=== PATIENT | female | born 1985 | race Caucasian/White ===

== ENCOUNTER 2025-01-19 10:28 | Emergency (ER) | payer OTHER, SELFPAY ==
--- OUTSIDE RECORDS SUMMARY | 2025-01-19 10:31 | XMS_ITS | Clinical Summary ---
Author Organization [facility] Address [address] [place] [id number] Care Team Providers Care Mechanic Insulator Name Role Phone Wendy Cruz MD Primary Care Provider Allergies No known active allergies Medications levonorgestrel-eth inyl estrad, 0.1mg-20mcg, (ALESSE-28) 0.1-20 mg-mcg tabletIndications: Encounter for counseling regarding contraception Take 1 Tablet by mouth once daily. 90 Tablet 3 Active Hospital, Clinic, or Other Facility Administered Medication Ordered Dose Route Frequency Start Date End Date Status levonorgestrel intrauterine device (MIRENA) 1 DeviceIndications:Encounter for IUD insertion 1 Device IU Q 7 YEARS 01/12/2022 Active Active Problems Problem Noted Date Diagnosed Date ASCUS with positive high risk HPV cervical 03/26 Overview (03/29/2022): 03/2017-ASCUS/HPV+ 04/2017 colp cervicitis 05/2018 NIL/HPV negative 12/2021 NIL/HPV Negative Plan: Pap/HPV due 12/2024 Anxiety 10/18/2014 Gallstone ileus 12/17/2009 Overview (12/18/2021): Gallstone Resolved Problems Problem Noted Date Diagnosed Date Resolved Date Encounter for supervision of normal in third trimester 08/27/2018 12/18/2021 05/07/2018 12/18/2021 Overview (10/15/2018): Estimated Date of Delivery: 11/02/18 Patient's last menstrual period was 01/12/2018 (within weeks). Last Tdap- 08/06/2018 Last Flu vaccine- 05/06/2018 Glucose (GTT) result- Component Latest Ref Rng & Units 08/06/2018 GLUCOSE,GESTATIONAL 65 - 139 mg/dL 70 Component Latest Ref Rng & Units 10/08/2018 HEMOGLOBIN 12.0 - 16.0 g/dL 11.4 (L) MCV 80 - 100 fL 83 Culture No Group B Streptococcus isolated. No Known Allergies Obstetric History T3 L3 SAB0 TAB0 Ectopic0 Multiple0 Live Births0 # Outcome Date GA Lbr Micah/2nd Weight Sex Delivery Anes PTL Lv 4 Current 3 Term 09/06/10 40w0d 3.49 kg (7 lb 11 oz) F Vag 2 Term 10/07/09 41w0d 3.63 kg (8 lb) Vag 1 Term 04/15/05 38w2d 3.77 kg (8 lb 5 oz) Vag Create lab flowsheet for OB labs- Component Latest Ref Rng & Units 03/10/2018 03/10/2018 03/10/2018 10:44 AM 10:44 AM 10:44 AM ANTIBODY SCREEN Negative Negative SPECIMEN EXPIRATION DATE/TIME 03/13/18 23:59 HEMOGLOBIN 12.0 - 16.0 g/dL 14.1 MCV 80 - 100 fL 90 RUBELLA IGG ANTIBODY Positive 4.04 HEMOGLOBIN A1C SCREENING <6.4 % 4.8 ABORH B Rh Positive HBSAG Nonreactive Nonreactive HEPATITIS C ANTIBODY Non-Reactive Non-Reactive HIV-1/HIV-2 ANTIBODY Non-Reactive Non-Reactive TREPONEMA PALLIDUM Negative Negative Past Medical History: Diagnosis Date ASCUS with positive high risk HPV cervical 03/2017- colposcopy advised depression No past surgical history on file. No data on file. 4th Problems (from 03/10/18 to present) No problems associated with this episode. YOEL Shahid.....05/07/2018 8:29 AM Immunizations Immunization Administration Dates Next Due AMB Influenza, IIV4 PF (=>6 mos Flulaval,Fluzone Fluarix)(Flu Clinic Only) 05/19/2019 COVID-19 vaccine (Pylba 30mcg/0.3mL) P F, MDV 07/12/2021 HepA-HepB (Twinrix) 03/25/2017 Influenza, IIV4 07/12/2021,05/06/2018 MMR 11/03/1997 Td (Age >=7 Years) 11/03/1997 Tdap 08/06/2018,01/29/2013 Family History Medical History Relation Name Comments Psychiatric illness Sister anxiety Relation Name Status Comments Sister Social History Tobacco Use Types Packs/Day Years Used Date Smoking Tobacco: Former Cigarettes 0.5 4 2 000 - 2004 Smokeless Tobacco: Never Tobacco Cessation:Counseling Given: Yes Comments:1-2 cigarettes a month while in college Alcohol Use Standard Drinks/Week Comments Yes 2 (1 standard drink = 0.6 oz pur e alcohol) socially PHQ-2 Answer Date Recorded PHQ-2 TOTAL SCORE 2 01/31/2022 Social Connections Answer Date Recorded Frequency of Communication with Friends and Fami ly Not on file 2021 Financial Resource Strain Answer Date R ecorded Difficulty of Paying Living Expenses Not on file 2021 Difficulty of Paying Living Expenses Not on file 2021 Comments No Sex and Gender Information Value Date Recorded Sex Assigned at Not on file 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 Please review and update details. 1 Term 40w 0d 3.49 kg (7 lb 11 oz) F Vag Last Filed Vital Signs Vital Sign Reading Time Taken Comments Blood Pressure 112/80 01/12/2022 1:45 PM CDT Pulse 80 01/12/2022 1:45 PM CDT Temperature 37.1 C (98.7 F) 12/21/2021 9:00 AM CDT Respiratory Rate - - Oxygen Saturation 96% 01/12/2022 1:45 PM CDT Inhaled Oxygen Concentration - - Weight 68.6 kg (151 lb 3.2 oz) 01/12/2022 1:45 P M CDT Height 163.3 cm (5' 4.29) 01/12/2022 1:45 PM CD T Body Mass Index 25.72 01/12/2022 1:45 PM CDT Plan of Treatment Health Maintenance Due Date Last Done Comments Hepatitis B series for 19+ (2 of 3 - Hep B Twinrix 3-dose series) 04/22/2017 03/25/2017 BMI (ht and wt on same day) for age 18+ 01/12/2023 01/12/2022, 12/18/2021, 01/19/2021, Additional history exists Depression screening for age 12+ 01/31/2023 01/31/2022, 12/18/2021, 12/13/2021, Additional history exists COVID-19 vaccine series ( season) 2024 07/12/2021, 11/24/2020, 11/03/2020 Pap test for age 21-65 01/12/2025 , 01/12/2022, 06/09/2018, Additional history exists Influenza Vaccine (Season Ended) 2025 07/12/2021, 05/19/2019, 05/06/2018 Tetanus booster 08/06/2028 08/06/2018, 01/2013, 11/03/1997 HIV for age 15-65 Completed 03/10/2018, 08/30/2010 Hepatitis C screening for age 18-79 Completed 03/10/2018 Tdap Completed 08/06/2018, 01/29/2013 Pneumococcal series for age 6-49 Aged Out No longer eligible based on patient's age to complete this topic Procedures Procedure Name Priority Date/Time Associated Diagnosis Comments COMMISSARY SUPERINTENDENT THIN PREP PAP SCREEN IMAGED Routine 01/12/2022 2:03 PM CDT Screening for cervical cancer ANTI HIV 1/2 Routine 03/10/2018 10:44 AM CDT Encounter for supervision of normal first in first trimester (HC) ANTI HCV Routine 03/10/2018 10:44 AM CDT Encounter for supervision of normal first in first trimester (HC) from Last 3 Months or Most Recently Relevant to Health Maintenance Results * COMMISSARY SUPERINTENDENT THIN PREP PAP SCREEN IMAGED [[id number]] (01/12/2022 2:03 PM CDT) Case Report Gynecologic Cytology Report Case: [id number] Authorizing Provider: Wendy Cruz MD Collected: 01/12/2022 1403 Ordering Location: [facility] Received: 01/12/2022 1421 Clinic First Screen: Baccam, Minie Rescreen: Serene Nunes Specimen: COMMISSARY SUPERINTENDENT ThinPrep Vial Screening, Cervical 01/31/2022 8:[address] [facility] INTERPRETATION/ RESULT NEGATIVE FOR INTRAEPITHELIAL LESION OR MALIGNANCY (NIL) (none) 01/31/2022 8:25 AM CDT [facility] ENTRAL LABORATORY at 0825 CDT ORGANISM(S) Shift in serg suggestive of bacterial vaginosis 01/31/2022 8:25 AM CDT [facility] LABORATORY-C ENTRAL LABORATORY SPECIMEN ADEQUACY Satisfactory for evaluation Endocervical component present 01/31/2022 8:25 AM CDT [facility] LABORATORYC ENTRAL LABORATORY HPV REQUEST HPV and PAP 01/31/2022 8:25 AM CDT [facility] LABORATORY-C ENTRAL LABORATORY Date of LMP 01/03/2022 01/31/2022 8:25 AM CDT [facility] LABORATORY-C ENTRAL LABORATORY Last Pap Date 06/09/18 01/31/2022 8:25 AM CDT [facility] LABORATORY-C ENTRAL LABORATORY Last Pap Result NIL 8:25 AM CDT [facility] LABORATORY-C ENTRAL LABORATORY Abnormal Pap or [place] Bx in last 5 years Yes 01/31/2022 8:25 AM CDT [facility] ENTRAL LABORATORY Menstrual Status Regular Periods 01/31/2022 8:[address] [facility] EN[facility]AL LABORATORY [place] Bx Done Today No 01/31/2022 8:25 AM CDT [facility] LABORATORY-C ENTRAL LABORATORY Additional Information None given 01/31/2022 8:25 AM CDT [facility] ENTRME LABORATORY Comment: Cytology is screened at [facility] - [address], [place] [address] and [facility] - [address], [place] [address] and [facility] - [address] [place] [address] Interpreted at [facility] - [address], [place] [address] Automated Review Successful 01/31/2022 8:25 AM CDT [facility] Comment:Specimen processed s uccessfully by automated fundraiser device, [employer] System, [employer] ANCILLARY TESTING COMMISSARY SUPERINTENDENT HPV Ordered, Please see separate report 01/31/2022 8:25 AM CDT [facility] Note The pap test is a screening technique, not a diagnostic procedure. It is used primarily to screen for squamous cancers and precursor lesions. Published studies have shown that it is subject to both false negative and false positive results. The pap test should not be used as the sole means to diagnose or exclude pre-malignant and malignant lesions. 01/31/2022 8:25 AM CDT [facility] Other (Cervical) Non-Blood / Unknown 01/12/2022 2:03 PM CDT 01/12/2022 2:21 PM CDT Wendy Cruz MD PATHOLOGY/CYTOLOGY Final Re sult [facility] [address] [place] [address], [place] * ANTI HCV (03/10/2018 10:44 AM CDT) HEPATITIS C ANTIBODY Non-React rosario Non-React rosario 03/10/2018 6:31 PM CDT [facility] TRAL LABORATORY Comment:Antibodies to HCV no t detected; does not exclude the possibility of exposure to HCV. Blood BLOOD SPECIMEN / Unknown Venipuncture / Unknown 03/10/2018 10:44 AM CDT 03/10/2018 10:46 AM CDT Jessica NAVA SEND OUTS Final R esult [facility] [address] [place] [address], [place] * ANTI HIV 1/2 (03/10/2018 10:44 AM CDT) HIV-1/HIV-2 ANTIBODY Non-Reacti ve Non-Reacti ve 03/10/2018 6:25 PM CDT [facility] TRAL LABORATORY Comment:HIV-1 p24 and HIV-1/ HIV-2 Ab not detected. Blood BLOOD SPECIMEN / Unknown Venipuncture / Unknown 03/10/2018 10:44 AM CDT 03/10/2018 10:46 AM CDT Jessica NAVA SEND OUTS Final R esult Performing Organization Address City/[facility] Co de Phone Number [facility] [address] [place] [address], [place] from Last 3 Months or Most Recently Relevant to Health Maintenance Insurance [facility] Care Teams Mechanic Insulator Relationship Specialty Start Date End Date Wendy Cruz MD [address] [place] [address] PCP - General Family Practice 10/03/20
[2025-01-19 10:32] VITALS: BP 133/88; PULSE 73; RESP 18; TEMP 37; O2SAT 100; BMI 24.4
--- NOTE | 2025-01-19 11:10 | CRLHL7_ITS ---
For Patients: As a result of the Cures Act, medical imaging exams and procedure reports are released immediately into your electronic medical record. You may view this report before your referring provider. If you have questions, please contact your health care provider. INDICATION: Headache. TECHNIQUE: CT head without contrast. COMPARISON: None. FINDINGS: There is no mass effect or midline shift. No hydrocephalus. No CT evidence of acute hemorrhage or infarction. No abnormal extra-axial fluid collection. Bone windows show no acute calvarial fracture. Near complete opacification of the left maxillary sinus with cortical thickening, in keeping with chronic sinusitis. Lobular mucosal thickening of the right maxillary sinus. Near-complete opacification of the ethmoid and frontal sinuses. No discrete air-fluid level. Orbits as imaged are unremarkable. IMPRESSION: 1. No acute intracranial abnormality. 2. Paranasal sinus disease. Dictated by Joby Pat MD @ 01/19/2025 12:23:15 PM Please note that all CT scans at this facility use dose modulation, iterative reconstruction, and/or weight-based dosing when appropriate to reduce radiation dose to as low as reasonably achievable. Dictated by: Joby Pat MD @ 01/19/2025 12:23:56 (Electronically Signed)
--- NOTE | 2025-01-19 11:21 | ED.HA ---
HPI - Headache General Date Seen: 01/19/25 Chief Complaint: Headache/Migraine Stated Complaint: Headache Time Seen by Provider: 01/19/25 11:00 Source: patient Mode of arrival: ambulatory Limitations: no limitations History of Present Illness HPI Narrative: Patient is a 39-year-old female presenting to the emergency department for headache. States she has been having a slight headache for the past couple days. states that today around 08:00 she notes the headache was acutely much worse. States the pain was so bad she was crying but then that did not notice any tearing of her eyes or any rhinorrhea. The headache seems to go fully across her forehead. Denies ever having headaches like this before. Took ibuprofen without any improvement in symptoms. has not noticed any photophobia or phonophobia. Denies numbness or weakness. Has not had any visual or hearing changes. No associated nausea. Denies any fevers, chills, chest pain, shortness of breath, abdominal pain. No history of any brain injuries. No other concerns noted. Related Data Home Medications ?Medication ?Instructions ?Recorded ?Confirmed No Known Home Medications 01/19/25 01/19/25 Allergies Allergy/AdvReac Type Severity Reaction Status Date / Time No Known Drug Allergies Allergy Verified 01/19/25 10:37 Review of Systems Status of ROS: Reports: 10 or more systems reviewed and unremarkable except as noted in History and below Exam Narrative: Exam Narrative: Const: Well-nourished, Well-developed, in Modera distress Eyes: PERRL, no conjunctival injection, and symmetrical lids HENT: Atraumatic external nose and ears. Moist mucous membranes. Neck: Symmetric, trachea midline, No thyromegaly. CVS: RRR, No murmurs or gallops. Peripheral pulses 2+ and equal in all extremities RESP: Unlabored respiratory effort. Clear to auscultation bilaterally. GI: Nontender/Nondistended, No rebound or guarding. MSK:Extremities w/o deformity, Normal Active ROM Skin: Warm, Dry. No rashes or lesions. Neuro: Normal Muscle tone, Cranial nerves 2-12 grossly intact, normal qspz-va-[id number], normal effntz-yr-bbcx, normal gait, normal strength 5/5 upper lower extremities bilaterally, normal sensation upper and lower extremities bilaterally, normal rapid alternating movements. Psych: Awake, Alert, & Oriented x3. Appropriate mood and affect. Const: Vital Signs, click to edit/add: Vital Signs - 24 hr 01/19/25 10:32 Temperature 98.6 F Pulse Rate [Pulse Oximeter] 73 Respiratory Rate 18 Blood Pressure [Ri ght Upper Arm] 133/88 Pulse Oximetry 100 Oxygen Delivery Me thod Room Air Course Vital Signs Vital signs: Initial Vital Signs Temperature 98.6 F 01/19/25 10:32 Temperature Source Temporal Artery Scan 01/19/25 10:32 Pulse Rate 73 01/19/25 10:32 Respiratory Rate 18 01/19/25 10:32 Blood Pressure 133/88 01/19/25 10:32 Blood Pressure Mean 103 01/19/25 10:32 Blood Pressure Position Sitting 01/19/25 10:32 Pulse Oximetry 100 01/19/25 10:32 Oxygen Delivery Method Room Air 01/19/25 10:32 Vital Signs Temperature 98.6 F 01/19/25 10:32 Pulse Rate 73 01/19/25 10:32 Respiratory Rate 18 01/19/25 10:32 Blood Pressure 133/88 01/19/25 10:32 Pulse Oximetry 100 01/19/25 10:32 Oxygen Delivery Method Room Air 01/19/25 10:32 Temperature 98.6 F 01/19/25 10:32 Pulse Rate 73 01/19/25 10:32 Respiratory Rate 18 01/19/25 10:32 Blood Pressure 133/88 01/19/25 10:32 Pulse Oximetry 100 01/19/25 10:32 Oxygen Delivery Method Room Air 01/19/25 10:32 Medications Administered Medications: Discontinued Medications Generic Name Dose Route Start Last Admin Trade Name Neelq PRN Reason Stop Dose Admin Diphenhydramine HCl 25 mg 01/19/25 11:09 01/19/25 11:30 Diphenhydramine 50 Mg/Ml Inj IVP 01/19/25 11:10 25 mg ONCE ONE Administration Lactated Ringer's 1,000 mls @ 1,000 mls/hr 01/19/25 11:09 01/19/25 11:25 Lactated Ringers 1000 Ml IV 01/19/25 12:08 1,000 mls/hr .Q1H ONE Administration Ketorolac Tromethamine 15 mg 01/19/25 11:09 01/19/25 11:30 Ketorolac 15 Mg/Ml Inj IVP 01/19/25 11:10 15 mg ONCE ONE Administration Metoclopramide HCl 10 mg 01/19/25 11:09 01/19/25 11:30 Metoclopramide Hcl 5 Mg/Ml Inj IVP 01/19/25 11:10 10 mg ONCE ONE Administration MDM - Headache MDM Narrative Medical decision making narrative: patient is a 39-year-old female presenting to the emergency department for headache. was very well could be a migraine with more sudden onset worsening this morning I will do a CT scan to rule out any subarachnoid hemorrhage. This also look for any intracranial abnormalities in general. Will also give her a migraine cocktail. Is feeling better after the medications. was able to sleep. CT scan reviewed by myself and the radiologist shows no acute concerning abnormalities. He will be discharged. Imaging Data CT scan - head: Attestation: I have reviewed the pertinent imaging results. Radiologist's impression: 1. No acute intracranial abnormality. 2. Paranasal sinus disease. Dictated by Joby Pat MD @ 01/19/2025 12:23:15 PM Please note that all CT scans at this facility use dose modulation, iterative reconstruction, and/or weight-based dosing when appropriate to reduce radiation dose to as low as reasonably achievable. Dictated by: Joby Pat MD @ 01/19/2025 12:23:56 Discharge Plan Discharge Clinical Impression: Headache Qualifiers: Headache type: unspecified Headache chronicity pattern: acute headache Intractability: not intractable Qualified Code(s): R51.9 - Headache, unspecified Patient Disposition: Home, Self-Care Condition: Improved Instructions: Acute Headache (DC) Additional Instructions: Take tylenol and ibuprofen for pain. Make sure to stay hydrated. Return to emergency department for new or worsening symptoms Prescriptions: No Action No Known Home Medications Follow Up/Referrals: Wendy Cruz MD [Primary Care Provider, Family Practice] Stand Alone Forms: Pressglue Info Instructions
[2025-01-19] MEDS: LACTATED RINGERS 1000 ML 1,000 ML IV (11:25)
[2025-01-19] MEDS: METOCLOPRAMIDE HCL 5 MG/ML INJ 10 MG IVP (11:30)
[2025-01-19] MEDS: KETOROLAC 15 MG/ML inj IVP (11:30)
[2025-01-19] MEDS: diphenhydrAMINE 50 MG/ML inj 25 MG IVP (11:30)
== END 2025-01-19 13:35 | disposition home or self-care (01) ==
PROVIDERS: Emergency Provider Student in an Organized Health Care Education/Training Program; PCP Family Medicine
DX: R51.9 Headache, unspecified (principal)
CPT/HCPCS: 70450; 96374; 96375; 99284; J1200; J1885; J2765; J7120